=== PATIENT | female | born 1930 | race Caucasian/White ===

== ENCOUNTER 2017-06-17 13:20 | Day surgery (SDC) | payer MEDICARE, OTHER ==
[~2017-06-17 13:20] MED LIST: ASPI81CH; CALC1.25T PO; CHOL10002 PO; CYAN500 PO; CYANOCOBALAMIN; LEVSOD100; LEVSOD88; LEVSOD88 PO; LORA.5; LORA1; LORA1 PO; MULVITMIND PO; NAPR500 PO; OMEP20ER; OMEP20ER PO; PYRI100 PO; PYRIDOXINE; TRAM50 PO; VICODIN 5-3001 EACH PO; WARF10; [UNRECOGNIZED DRUG - REMARK]; [UNRECOGNIZED DRUG - REMARK]
[2017-06-21 15:05] LABS: Performing Lab SYMBIODX; Test Name TISSUE BLOCK
[2017-08-15] MEDS ORDERED: LEVSOD100 PO (14:08)
[2017-08-15] MEDS ORDERED: Omeprazole20 M1 PO (14:08)
[2017-08-15] MEDS ORDERED: LORZONE375 MG PO (14:09)
[2017-08-15] MEDS ORDERED: LORA1 PO (14:10)
[2017-08-15] MEDS ORDERED: NAPR500 PO (14:11)
== END 2017-06-17 23:32 | disposition home or self-care (01) ==
LOC: MOI US 13:20
PROVIDERS: Physician Assistant Medical
PROC: 0HBU3ZX Excision of Left Breast, Percutaneous Approach, Diagnostic (ICD-10-PCS; principal; 2017-06-17)
DX: C50.912 Malignant neoplasm of unspecified site of left female breast (principal); Z17.0 Estrogen receptor positive status [ER+]
CPT/HCPCS: 19083; 77065; 88305; 88360; 88363; 88374; G0279

== ENCOUNTER 2017-08-17 09:30 | Day surgery (SDC) | payer MEDICARE, OTHER ==
[~2017-08-17 09:30] MED LIST changes: +LEVSOD100 PO; +LORZONE375 MG PO; +Omeprazole20 M1 PO
== END 2017-08-17 22:46 | disposition home or self-care (01) ==
LOC: MOI MAM 09:30
PROC: BH01ZZZ Plain Radiography of Left Breast (ICD-10-PCS; principal; 2017-08-17)
DX: C50.812 Malignant neoplasm of overlapping sites of left female breast (principal)
CPT/HCPCS: 19285; 77065

== ENCOUNTER 2017-08-23 08:04 | Day surgery (SDC) | payer MEDICARE, OTHER ==
[~2017-08-23] VITALS: Ht 154.9 cm; Wt 51.7 kg
== END 2017-08-23 23:00 | disposition home or self-care (01) ==
LOC: NM 08:04 → ORSCMMR 08:04 → NM 08:05 → ORSCMMR 08:05 → NM 09:00 → ORSCMMR 23:00
PROVIDERS: Surgery
PROC: 0HBU0ZZ Excision of Left Breast, Open Approach (ICD-10-PCS; principal; 2017-08-23 11:00)
PROC: 07B60ZX Excision of Left Axillary Lymphatic, Open Approach, Diagnostic (ICD-10-PCS; principal; 2017-08-23 11:00)
DX: C50.812 Malignant neoplasm of overlapping sites of left female breast (principal); Z17.0 Estrogen receptor positive status [ER+]; D36.0 Benign neoplasm of lymph nodes; E03.9 Hypothyroidism, unspecified; K21.9 Gastro-esophageal reflux disease without esophagitis; Z79.899 Other long term (current) drug therapy
CPT/HCPCS: 38792; 76098; 88307; 88342; A9520; J0330; J0690; J1100; J2405; J2550; J3010; J7120; Q9968